=== PATIENT | female | born 1950 | race Caucasian/White ===

== ENCOUNTER 2024-01-14 10:23 | Emergency (ER) | payer OTHER ==
[~2024-01-14] VITALS: Ht 160 cm; Wt 155.1 kg
[~2024-01-14 10:23] MED LIST: ANAPROX DS550 MG PO; INDERAL20 MG PO; LOPRESSOR25 MG PO
[2024-01-14] MEDS ORDERED: FUROSEMIDE20 M1 PO (10:59)
[2024-01-14] MEDS ORDERED: DILTIAZEM 24HR180 MG PO (11:00)
[2024-01-14] MEDS ORDERED: ALDACTONE25 MG PO (11:00)
[2024-01-14] MEDS ORDERED: GABAPENTIN400 MG PO (11:00)
[2024-01-14] MEDS ORDERED: POTASSIUM CHLO20 ME3 PO (11:01)
[2024-01-14] MEDS ORDERED: FENOFIBRATE160 MG PO (11:01)
[2024-01-14] MEDS ORDERED: FLUCONAZOLE200 MG PO (11:02)
[2024-01-14] MEDS ORDERED: EXEMESTANE25 M2 PO (11:02)
[2024-01-14] MEDS ORDERED: MONTELUKAST SOD10 MG PO (11:03)
[2024-01-14] MEDS ORDERED: Acetaminophen/Oxycodone 5 MG/325 MG TABLET PO ONE (12:10)
[2024-01-14] MEDS ORDERED: PERCOCET 5-3251 EACH PO (12:13)
== END 2024-01-14 12:46 | disposition home or self-care (01) ==
LOC: ED 10:23
DX: S82.832A Other fracture of upper and lower end of left fibula, initial encounter for closed fracture (principal); I50.9 Heart failure, unspecified; I10 Essential (primary) hypertension; Z88.2 Allergy status to sulfonamides; Z88.1 Allergy status to other antibiotic agents; Z88.6 Allergy status to analgesic agent; Z88.8 Allergy status to other drugs, medicaments and biological substances; Z98.890 Other specified postprocedural states; W19.XXXA Unspecified fall, initial encounter; Y93.89 Activity, other specified; Y92.89 Other specified places as the place of occurrence of the external cause; Y99.8 Other external cause status

== ENCOUNTER 2024-02-28 15:31 | Emergency (ER) | payer OTHER ==
[~2024-02-28] VITALS: Ht 160 cm; Wt 145.1 kg
[~2024-02-28 15:31] MED LIST changes: +ALDACTONE25 MG PO; +DILTIAZEM 24HR180 MG PO; +EXEMESTANE25 M2 PO; +FENOFIBRATE160 MG PO; +FLUCONAZOLE200 MG PO; +FUROSEMIDE20 M1 PO; +GABAPENTIN400 MG PO; +MONTELUKAST SOD10 MG PO; +PERCOCET 5-3251 EACH PO; +POTASSIUM CHLO20 ME3 PO
[2024-02-28] MEDS ORDERED: ACETAMINOPHEN 325 MG TAB PO ONE (15:45)
[2024-02-28 15:58] LABS: BASO # 0.1 10*3/uL (0.0-0.1); BASO % 0.4 % (0.0-1.0); EOS # 0.3 10*3/uL (0.0-0.4); EOS % 1.9 % (1.0-4.0); LYMPH # 1.9 10*3/uL (1.3-4.4); LYMPH % 13.1 % (27.0-41.0); MEAN CELL VOLUME 95.1 fl (81.0-99.0); MEAN CORPUSCULAR HGB CONC 32.6 g/dl (33.0-37.0); MEAN PLATELET VOLUME 9.5 fl (9.6-12.3); MONO # 1.1 10*3/uL (0.1-1.0); MONO % 7.3 % (3.0-9.0); NEUT # 11.2 10*3/uL (2.3-7.9); PLATELET COUNT AUTOMATED 327 10*3/uL (130-400); RED BLOOD COUNT 4.94 10*6/uL (4.10-5.10); RED CELL DISTRI WIDTH 12.9 % (0-14.5); WHITE BLOOD COUNT 14.6 10*3/uL (4.8-10.8)
[2024-02-28 16:15] LABS: ALKALINE PHOSPHATASE 89 U/L (46-116); BUN 16 mg/dl (9-23); CHLORIDE 104 mmol/L (98-107); SGPT/ALT 15 U/L (5-49); TOTAL PROTEIN 7.4 gm/dL (6.0-8.0)
[2024-02-28 16:38] LABS: BILIRUBIN Negative (Negative); BLOOD Negative (Negative); CLARITY Clear (Clear); COLOR Yellow (Yellow); GLUCOSE Negative (Negative); KETONE Negative (Negative); LEUKO ESTERASE 2+ (Negative); NITRITE Negative (Negative); PH 6.5 (4.5-8.0); SPECIFIC GRAVITY <= 1.005 (1.001-1.030); UROBILINOGEN 0.2 E.U./dl (0.0-1.0)
[2024-02-28 17:13] LABS: BACTERIA 2+; WBC 16-20 wbc/hpf (0-5)
[2024-02-28 17:14] LABS: EPITHELIAL CELLS 0-2
[2024-02-28] MEDS ORDERED: MACROBID100 M1 PO (17:41)
[2024-02-28] MEDS ORDERED: ELIQUIS5 M1 PO (17:41)
== END 2024-02-28 18:12 | disposition home or self-care (01) ==
LOC: ED 15:31
PROVIDERS: Physician Assistant Medical
DX: I48.91 Unspecified atrial fibrillation (principal); N39.0 Urinary tract infection, site not specified; R11.2 Nausea with vomiting, unspecified; R53.1 Weakness; E78.5 Hyperlipidemia, unspecified; I10 Essential (primary) hypertension; Z88.2 Allergy status to sulfonamides; Z88.1 Allergy status to other antibiotic agents; Z88.6 Allergy status to analgesic agent; Z88.8 Allergy status to other drugs, medicaments and biological substances; Z98.890 Other specified postprocedural states

== ENCOUNTER 2024-07-20 09:26 | Emergency (ER) | payer OTHER ==
[~2024-07-20] VITALS: Ht 160 cm; Wt 147.0 kg
[~2024-07-20 09:26] MED LIST changes: +ELIQUIS5 M1 PO; +MACROBID100 M1 PO
[2024-07-20] MEDS ORDERED: ELIQUIS5 M1 PO (09:39)
[2024-07-20] MEDS ORDERED: GEMTESA75 MG PO (09:40)
[2024-07-20] MEDS ORDERED: VITAMIN D350 MCG PO (09:42)
[2024-07-20] MEDS ORDERED: TURMERIC CURCU500 MG PO (09:43)
[2024-07-20] MEDS ORDERED: NEURONTIN400 MG PO (09:43)
[2024-07-20] MEDS ORDERED: IRON325 M1 PO (09:43)
[2024-07-20] MEDS ORDERED: VITAMIN C1000 M5 PO (09:44)
[2024-07-20] MEDS ORDERED: Ondansetron Hydrochloride 4 MG TAB SL ONE (09:45)
[2024-07-20] MEDS ORDERED: CRANBERRY250 MG PO (09:45)
[2024-07-20] MEDS ORDERED: ZINC50 M4 PO (09:46)
[2024-07-20] MEDS ORDERED: OMEGA-3 + D SO1 EACH PO (09:46)
[2024-07-20] MEDS ORDERED: VITAMIN B121000 MC3 PO (09:47)
[2024-07-20] MEDS ORDERED: PROBIOTIC250 MG PO (09:48)
[2024-07-20] MEDS ORDERED: ARTHRITIS PAIN650 M3 PO (09:49)
[2024-07-20 10:02] LABS: BASO % 0.4 % (0.0-1.0); EOS # 0.2 10*3/uL (0.0-0.4); EOS % 1.3 % (1.0-4.0); HEMATOCRIT 43.7 % (37.0-47.0); LYMPH # 1.4 10*3/uL (1.3-4.4); LYMPH % 12.1 % (27.0-41.0); MEAN CORPUSCULAR HGB 32.5 pg (27.0-31.0); MEAN CORPUSCULAR HGB CONC 33.9 g/dl (33.0-37.0); MEAN PLATELET VOLUME 9.5 fl (9.6-12.3); MONO # 0.7 10*3/uL (0.1-1.0); MONO % 6.3 % (3.0-9.0); NEUT # 8.9 10*3/uL (2.3-7.9); NEUT % 79.4 % (47.0-73.0); PLATELET COUNT AUTOMATED 271 10*3/uL (130-400); RED BLOOD COUNT 4.55 10*6/uL (4.10-5.10); RED CELL DISTRI WIDTH 13.1 % (0-14.5); WHITE BLOOD COUNT 11.2 10*3/uL (4.8-10.8)
[2024-07-20 10:16] LABS: ACT PARTIAL THROMBO TIME 29.6 SECONDS (20.0-32.1)
[2024-07-20 10:22] LABS: BUN 13 mg/dl (9-23); CHLORIDE 100 mmol/L (98-107); POTASSIUM 4.2 mmol/L (3.4-5.1)
== END 2024-07-20 14:10 | disposition home or self-care (01) ==
LOC: ED 09:26
PROVIDERS: Internal Medicine
DX: B34.9 Viral infection, unspecified (principal); Z20.822 Contact with and (suspected) exposure to COVID-19; R09.1 Pleurisy; M25.512 Pain in left shoulder; Z88.2 Allergy status to sulfonamides; Z88.1 Allergy status to other antibiotic agents; Z88.6 Allergy status to analgesic agent; Z79.899 Other long term (current) drug therapy; Z98.890 Other specified postprocedural states